=== PATIENT | female | born 1980 | race Caucasian/White ===

== ENCOUNTER 2018-08-21 16:53 | Emergency (ER) | payer MEDICAID, SELFPAY ==
[2018-08-21 16:56] VITALS: BP 151/92; PULSE 68; RESP 16; TEMP 36.7; O2SAT 100
--- NOTE | 2018-08-21 17:11 | W.ED.GENAD ---
Discharge Plan Disposition Patient Disposition: HOME Condition: Stable Discharge Details Chief Complaint: RespSymp Clinical Impression: Community acquired pneumonia Primary Care Provider: Gayle Andrade ED Provider: Mikal Quintero Home Meds and New Rx's Prescriptions: New doxycycline hyclate 100 mg tablet 100 mg PO BID Qty: 14 RF: 0 Discharge Instructions Instructions: Pneumonia (ED) Additional Instructions: if you are not feeling better in a week follow up with your primary care provider if you have worsening difficulty breathing or severe chest pain return to the emergency department Stand Alone Forms: Work Release Medical Decision Making 37 yo who denies chronic med problems, chronic smoker, who comes in with cough for 2 weeks. No fevers or recent travel, no chest pain or dyspnea. Has rhonchi at the base on the left lower otherwise appears well systemically and speaking in full sentences. Could be uri vs post nasal drip but will treat for possible cap with doxy and advised f/u with pcp and return precautions given Differential Diagnosis bronchitis, pna, copd, asthma, post nasal drip HPI General Mode of arrival: ambulatory. Date/Time Provider Initiated Documentation: 08/21/18 16:54. Limitations to Documentation: no limitations. Information obtained by: patient. History of Present Illness 37 year old F presents to the emergency department with the chief complaint of cough, described as moderate, Patient reports no radiation. Patient started experiencing this week(s) (2) and it has been constant. No relieving factors improve symptom(s), No exacerbating factors reported . Patient did receive the following treatments prior to arrival, none Related Data Home Medications Medication Instructions Recorded Confirmed doxycycline hyclate 100 mg PO BID #14 tab 08/21/18 Previous Rx's Medication Instructions Recorded doxycycline hyclate 100 mg PO BID #14 tab 08/21/18 Allergies Allergy/AdvReac Type Severity Reaction Status Date / Time Penicillins Allergy Mild Topical Unverified 08/21/18 17:03 Irritation General Stated Complaint: RespSymp MANA: 4 Review of Systems Review of Systems All systems reviewed & are unremarkable except as noted in HPI and below Constitutional Denies chills, Denies fever(s) and Denies weakness Eyes Denies loss of vision ENT Denies change in voice Cardiovascular Denies chest pain and Denies dyspnea Respiratory Denies dyspnea Gastrointestinal Denies abdominal pain, Denies nausea and Denies vomiting Genitourinary Denies dysuria Musculoskeletal Denies joint swelling Integumentary/Breasts Denies rash Neurologic Denies loss of vision and Denies weakness Psychiatric Denies depression Endocrine Denies cold intolerance and Denies heat intolerance Allergic/Immunologic Denies urticaria PFSH Social History Smoking/Tobacco Use Status: Current every day Exam Const General: no acute distress Orientation: alert HENMT Head: normal to inspection Ears: external ears normal General nose exam: external nose normal Mouth: moist mucous membranes Eyes General: appearance normal, both eyes and all related structures Neck Neck: normal visual inspection Resp Effort & Inspection: normal respiratory effort and able to speak in complete sentences Cardio Rate: regular rate Skin General skin exam: no rashes or lesions noted Neuro General: alert and oriented x3 Extrem General: normal to inspection Psych Mental Status: mental status grossly normal Course Vital Signs Temperature 36.7 C 08/21/18 16:56 Pulse 68 08/21/18 16:56 Respiratory Rate 16 08/21/18 16:56 Blood Pressure 151/92 H 08/21/18 16:56 Pulse Oximetry 100 08/21/18 16:56 Temperature 36.7 C 08/21/18 16:56 Temperature Source Skin 08/21/18 16:56 Pulse 68 08/21/18 16:56 Respiratory Rate 16 08/21/18 16:56 Respiratory Effort 08/21/18 17:06 Respiratory Depth Normal 08/21/18 17:06 Blood Pressure 151/92 H 08/21/18 16:56 Blood Pressure Position Sitting 08/21/18 16:56 Pulse Oximetry 100 08/21/18 16:56 Oxygen Delivery Method Room Air 08/21/18 16:56 Oxygen Flow Rate 0 08/21/18 16:56 Pain Level 5 08/21/18 16:56
--- NOTE | 2018-08-21 17:14 | ED.GENADUL_ITS ---
Discharge Plan Disposition Patient Disposition: HOME Condition: Stable Discharge Details Chief Complaint: RespSymp Clinical Impression: Community acquired pneumonia Primary Care Provider: Gayle Andrade ED Provider: Mikal Quintero Home Meds and New Rx's Prescriptions: New doxycycline hyclate 100 mg tablet 100 mg PO BID Qty: 14 RF: 0 Discharge Instructions Instructions: Pneumonia (ED) Additional Instructions: if you are not feeling better in a week follow up with your primary care provider if you have worsening difficulty breathing or severe chest pain return to the emergency department Stand Alone Forms: Work Release Medical Decision Making 37 yo who denies chronic med problems, chronic smoker, who comes in with cough for 2 weeks. No fevers or recent travel, no chest pain or dyspnea. Has rhonchi at the base on the left lower otherwise appears well systemically and speaking in full sentences. Could be uri vs post nasal drip but will treat for possible cap with doxy and advised f/u with pcp and return precautions given Differential Diagnosis bronchitis, pna, copd, asthma, post nasal drip HPI General Mode of arrival: ambulatory . Date/Time Provider Initiated Documentation: 08/21/18 16:54 . Limitations to Documentation: no limitations . Information obtained by: patient . History of Present Illness 37 year old F presents to the emergency department with the chief complaint of cough, described as moderate, Patient reports no radiation. Patient started experiencing this week(s) (2) and it has been constant. No relieving factors improve symptom(s), No exacerbating factors reported . Patient did receive the following treatments prior to arrival, none Related Data Home Medications Medication Instructions Recorded Confirmed doxycycline hyclate 100 mg PO BID #14 tab 08/21/18 Previous Rx's Medication Instructions Recorded doxycycline hyclate 100 mg PO BID #14 tab 08/21/18 Allergies Allergy/AdvReac Type Severity Reaction Status Date / Time Penicillins Allergy Mild Topical Unverified 08/21/18 17:03 Irritation General Stated Complaint: RespSymp MANA: 4 Review of Systems Review of Systems All systems reviewed & are unremarkable except as noted in HPI and below Constitutional Denies chills, Denies fever(s) and Denies weakness Eyes Denies loss of vision ENT Denies change in voice Cardiovascular Denies chest pain and Denies dyspnea Respiratory Denies dyspnea Gastrointestinal Denies abdominal pain, Denies nausea and Denies vomiting Genitourinary Denies dysuria Musculoskeletal Denies joint swelling Integumentary/Breasts Denies rash Neurologic Denies loss of vision and Denies weakness Psychiatric Denies depression Endocrine Denies cold intolerance and Denies heat intolerance Allergic/Immunologic Denies urticaria PFSH Social History Smoking/Tobacco Use Status: Current every day Exam Const General: no acute distress Orientation: alert HENMT Head: normal to inspection Ears: external ears normal General nose exam: external nose normal Mouth: moist mucous membranes Eyes General: appearance normal, both eyes and all related structures Neck Neck: normal visual inspection Resp Effort & Inspection: normal respiratory effort and able to speak in complete sentences Cardio Rate: regular rate Skin General skin exam: no rashes or lesions noted Neuro General: alert and oriented x3 Extrem General: normal to inspection Psych Mental Status: mental status grossly normal Course Vital Signs Temperature 36.7 C 08/21/18 16:56 Pulse 68 08/21/18 16:56 Respiratory Rate 16 08/21/18 16:56 Blood Pressure 151/92 H 08/21/18 16:56 Pulse Oximetry 100 08/21/18 16:56 Temperature 36.7 C 08/21/18 16:56 Temperature Source Skin 08/21/18 16:56 Pulse 68 08/21/18 16:56 Respiratory Rate 16 08/21/18 16:56 Respiratory Effort 08/21/18 17:06 Respiratory Depth Normal 08/21/18 17:06 Blood Pressure 151/92 H 08/21/18 16:56 Blood Pressure Position Sitting 08/21/18 16:56 Pulse Oximetry 100 08/21/18 16:56 Oxygen Delivery Method Room Air 08/21/18 16:56 Oxygen Flow Rate 0 08/21/18 16:56 Pain Level 5 08/21/18 16:56
[2018-08-21 17:17] VITALS: BP 151/92; PULSE 68; RESP 16; TEMP 36.7; O2SAT 100
== END 2018-08-21 17:20 | disposition home or self-care (01) ==
LOC: ER 17:23
PROVIDERS: Emergency Provider Emergency Medicine; PCP Nurse Practitioner Family
DX: J18.9 Pneumonia, unspecified organism (principal)
CPT/HCPCS: 99283

== ENCOUNTER 2019-03-22 19:46 | Emergency (ER) | payer MEDICAID, SELFPAY ==
[2019-03-22 19:51] VITALS: BP 114/83; PULSE 110; RESP 28; TEMP 37.3; O2SAT 96
--- NOTE | 2019-03-22 20:39 | W.ED.GENAD ---
Discharge Plan Disposition Patient Disposition: HOME Condition: Good Discharge Details Chief Complaint: RashLesion Clinical Impression: Abscess of gluteal cleft Primary Care Provider: Gayle Andrade ED Provider: Angus Dennison Home Meds and New Rx's Prescriptions: New clindamycin HCl 150 mg capsule 450 mg PO TID 7 Days Qty: 63 RF: 0 Discharge Instructions Instructions: Abscess (ED) Additional Instructions: You had an abscess that was drained. It has now been packed. Please take the antibiotic as directed. Please do not submerse your buttock and water at all until you are reassessed by a physician. Please eat yogurt with live cultures to prevent diarrhea. Please follow-up in the next 3 days for reassessment of your wound if you notice any worsening of your symptoms, or any new symptoms such as vomiting, diarrhea, fever, chills, shortness of breath, chest pain, numbness, weakness, or fainting , please return immediately to the emergency department for reevaluation. Please follow up with your primary care provider as soon as possible for reassessment and reevaluation. As always, it was a pleasure participating in your medical care today. Stand Alone Forms: Work Release Referrals: Gayle Andrade [Primary Care Provider] - Medical Decision Making This is a pleasant 38-year-old female with no significant past medical history who presents today for evaluation of sacral abscess. Symptoms have been present for the last 4 days and gradually been worsening. Exam demonstrates evidence of a mild small abscess at the gluteal cleft just to the right of midline. The area was anesthetized with 5 cc of lidocaine, and was I indeed successfully. Notable purulence was exuded. The area was then packed. Patient will be started on clindamycin for the associated mild cellulitis. Patient's pain is completely resolved after incision and drainage and she feels much better. Discussed the importance of close follow-up, wound care instructions, and importance of reevaluation for removal of the packing. I have extensively reviewed the treatment plan and discharge instructions with the patient. I have addressed all patient concerns at this time. The patient was made aware of what symptoms to monitor for that would warrant a return to the emergency department. Discussed the plan with the patient, they demonstrate verbal understanding and agreement with our assessment and plan at this time. Procedure note I&D abscess: Time out was taken to identify the correct patient, procedure, and site. Risks and benefits were discussed with the patient and consent was obtained. Ultrasound was used to locate the site of maximal fluid collection. The site was sterilized and draped in the typical fashion. Lidocaine 1% 5ml was instilled into the surrounding tissue. Appropriate analgesia was obtained. The abscess was incised with an 11 blade, and purulent material and blood were expressed. The wound was packed, cleaned, and dressed. Blood loss was minimal. The patient tolerated the procedure well. There were no complications HPI General Date/Time Provider Initiated Documentation: 03/22/19 19:58. HPI Narrative: This is a 38-year-old female with no significant past medical history who presents today for evaluation of an abscess on her buttock. She states that for the last 4 days it is been present, the swelling has been increasing. pain is fairly notable. Untouched by Tylenol or Motrin. She denies any fever or chills. She has no other complaints modifying factors. She denies a history of IV or illicit drug use or previous history of abscesses like this. No other complaints at this time. Related Data Home Medications Medication Instructions Recorded Confirmed clindamycin HCl 450 mg PO TID 7 Days #63 cap 03/22/19 Previous Rx's Medication Instructions Recorded clindamycin HCl 450 mg PO TID 7 Days #63 cap 03/22/19 Allergies Allergy/AdvReac Type Severity Reaction Status Date / Time Penicillins Allergy Mild Topical Unverified 08/21/18 17:03 Irritation General Stated Complaint: RashLesion MANA: 3 Review of Systems Review of Systems All systems reviewed & are unremarkable except as noted in HPI and below [facility] Social History Smoking/Tobacco Use Status: Current every day Drug use: Never Substance use type: does not use Do you feel safe at home: Yes Do you feel safe in your relationship?: Yes Exam Narrative Exam Narrative: 1.Const: Well-nourished, Well-developed, appearing stated age 2.Eyes: PERRL, no conjunctival injection, and symmetrical lids. 3.ENT: Atraumatic external nose and ears. Moist MM. Neck: Symmetric, trachea midline, No thyromegaly. 4.CVS: +S1/S2, No murmurs or gallops. Peripheral pulses 2+ and equal in all extremities. Brisk capillary refill in all extremities. 5.RESP: Unlabored respiratory effort. Clear to auscultation bilaterally. No wheezes rales or rhonchi 6.GI: Soft, Nontender/Nondistended, No hepatosplenomegaly. No guarding or rebound. 7.MSK: Normocephalic/Atraumatic, Extremities w/o deformity or ttp No cyanosis or clubbing, Normal movement of all extremities 8.Skin: Warm, Dry. Gluteal exam was performed with female nurse Ashlee at bedside. Exam at the superior gluteal cleft demonstrates evidence of a small abscess with notable fluctuance roughly 1.5 cm in diameter. It is slightly to the right of midline. Mild redness surrounding it extending roughly 1.5 to 2 cm from the central abscess. No other significant abnormalities. 9.Neuro: head of visual merchandising II-XII grossly intact. Sensation grossly intact, no focal neurologic deficits. 10.Psych: (AAO) x3. Appropriate mood and affect Course Vital Signs Temperature 37.3 C 03/22/19 19:51 Pulse 110 H 03/22/19 19:51 Respiratory Rate 28 H 03/22/19 19:51 Blood Pressure 114/83 03/22/19 19:51 Pulse Oximetry 96 03/22/19 19:51 Temperature 37.3 C 03/22/19 19:51 Temperature Source Tympanic 03/22/19 19:51 Pulse 110 H 03/22/19 19:51 Respiratory Rate 28 H 03/22/19 19:51 Respiratory Effort Non-Labored 03/22/19 19:59 Blood Pressure 114/83 03/22/19 19:51 Blood Pressure Position Left Lateral 03/22/19 19:51 Pulse Oximetry 96 03/22/19 19:51 Oxygen Delivery Method Room Air 03/22/19 19:51 Oxygen Flow Rate 0 03/22/19 19:51 Lab/Test Results Lab/Test Results: 03/22/19 20:20 Sacrum Wound Culture - Pending 03/22/19 20:20 Sacrum Gram Stain - Pending 03/22/19 20:36 Sacrum Wound Culture - Pending 03/22/19 20:36 Sacrum Gram Stain - Pending
[2019-03-22] MEDS: Clindamycin 150 MG CAP 450 MG PO (20:49)
== END 2019-03-22 20:50 | disposition home or self-care (01) ==
PROVIDERS: Emergency Provider Student in an Organized Health Care Education/Training Program; PCP Nurse Practitioner Family
DX: L02.31 Cutaneous abscess of buttock (principal)
CPT/HCPCS: 10061; 87077; 87070; 87205

== ENCOUNTER 2019-03-25 17:35 | Emergency (ER) | payer MEDICAID, SELFPAY ==
[2019-03-25 17:43] VITALS: BP 152/95; PULSE 88; RESP 12; TEMP 37.1; O2SAT 99
--- NOTE | 2019-03-25 19:07 | W.ED.GENAD ---
Discharge Plan Disposition Patient Disposition: HOME Condition: Improving Discharge Details Chief Complaint: Recheck Clinical Impression: Encounter for recheck of abscess following incision and drainage Primary Care Provider: Gayle Andrade ED Provider: Meng Medina Home Meds and New Rx's Prescriptions: Continued clindamycin HCl 150 mg capsule 450 mg PO TID 7 Days Qty: 63 RF: 0 Discharge Instructions Instructions: Abscess (ED), Sitz Bath (GEN) Additional Instructions: Continue to watch for any worsening signs or symptoms, fever chills, or change in drainage or pain. If these occur feel free to return to the emergency department for reassessment otherwise follow-up with your primary care provider as arranged. Continue to take your antibiotics Referrals: Armaan Morfin NP [NURSE PRACTITIONER] - 03/27/19 (Keep your appointment as scheduled for recheck on Saturday) Discharge Data Discharge Date/Time-TO BE ENTERED AT DEPARTURE: 03/25/19 19:17 Medical Decision Making Gluteal abscess recheck. Patient does that she went to her primary care provider to have wound rechecked and packing removed but thought it was states it was due for Pap smear monitor for Pap smear. Patient reported that she was not there for PAP smear. Patient was informed that she seen by provider in 2 days and that the wound recheck. Due to her frustration she presented to the emergency department for wound recheck and packing removal. wound appears to be healing well, serosanguineous drainage with no purulence or significant odor. Discussed risk versus benefit of packing removal which she was in agreement to have packing removed. Packing was removed without incident and continued to show no purulent drainage. Patient was encouraged to have sitz bath and to keep follow-up appoint with primary care in 2 days for reassessment. Patient to continue antibiotic prescribed. Return precautions discussed. After discussion of diagnosis and plan of care patient has no further needs, questions, or concerns and states clear understanding to return to the emergency department for any worsening symptoms. HPI General Mode of arrival: ambulatory. Date/Time Provider Initiated Documentation: 03/25/19 17:45. Limitations to Documentation: no limitations. Information obtained by: patient, RN notes reviewed and old records reviewed. History of Present Illness 38 year old F presents to the emergency department with the chief complaint of Abscess recheck, described as moderate, with intensity rated at 5. Quality is described as aching, and is localized to the buttocks. Patient started experiencing this day(s) (3) Patient notes no other symptoms.. Related Data Home Medications Medication Instructions Recorded Confirmed clindamycin HCl 450 mg PO TID 7 Days #63 cap 03/22/19 03/25/19 Previous Rx's Medication Instructions Recorded clindamycin HCl 450 mg PO TID 7 Days #63 cap 03/22/19 Allergies Allergy/AdvReac Type Severity Reaction Status Date / Time Penicillins Allergy Mild Topical Unverified 03/25/19 17:47 Irritation General Stated Complaint: Recheck MANA: 4 Review of Systems Constitutional Denies chills and Denies fever(s) Gastrointestinal Denies change in bowel habits, Denies change in stool character, Denies diarrhea, Denies nausea and Denies vomiting Integumentary/Breasts Reports as per HPI and Denies rash PFSH Social History Smoking/Tobacco Use Status: Current every day Drug use: Never Substance use type: does not use Do you feel safe at home: Yes Do you feel safe in your relationship?: Yes Exam Const General: cooperative, no acute distress and not ill appearing Orientation: alert, awake and oriented x3 Resp Effort & Inspection: normal respiratory effort, able to speak in complete sentences and no respiratory distress Skin General skin exam: erythema (With gluteal fold and packing in place.) Wounds: wounds noted Course Vital Signs Temperature 37.1 C 03/25/19 17:43 Pulse 88 03/25/19 17:43 Respiratory Rate 12 03/25/19 17:43 Blood Pressure 152/95 H 03/25/19 17:43 Pulse Oximetry 99 03/25/19 17:43 Temperature 37.1 C 03/25/19 17:43 Temperature Source Temporal Artery Scan 03/25/19 17:43 Pulse 88 03/25/19 17:43 Respiratory Rate 12 03/25/19 17:43 Respiratory Effort Non-Labored 03/25/19 17:46 Blood Pressure 152/95 H 03/25/19 17:43 Blood Pressure Position Sitting 03/25/19 17:43 Pulse Oximetry 99 03/25/19 17:43 Oxygen Delivery Method Room Air 03/25/19 17:43 Oxygen Flow Rate 0 03/25/19 17:43 Pain Level 5 03/25/19 17:43
--- NOTE | 2019-03-25 19:10 | ED.GENADUL_ITS ---
Discharge Plan Disposition Patient Disposition: HOME Condition: Improving Discharge Details Chief Complaint: Recheck Clinical Impression: Encounter for recheck of abscess following incision and drainage Primary Care Provider: Gayle Andrade ED Provider: Meng Medina Home Meds and New Rx's Prescriptions: Continued clindamycin HCl 150 mg capsule 450 mg PO TID 7 Days Qty: 63 RF: 0 Discharge Instructions Instructions: Abscess (ED), Sitz Bath (GEN) Additional Instructions: Continue to watch for any worsening signs or symptoms, fever chills, or change in drainage or pain. If these occur feel free to return to the emergency department for reassessment otherwise follow-up with your primary care provider as arranged. Continue to take your antibiotics Referrals: Armaan Morfin NP [NURSE PRACTITIONER] - 03/27/19 (Keep your appointment as scheduled for recheck on Saturday) Discharge Data Discharge Date/Time-TO BE ENTERED AT DEPARTURE: 03/25/19 19:17 Medical Decision Making Gluteal abscess recheck. Patient does that she went to her primary care provider to have wound rechecked and packing removed but thought it was states it was due for Pap smear monitor for Pap smear. Patient reported that she was not there for PAP smear. Patient was informed that she seen by provider in 2 days and that the wound recheck. Due to her frustration she presented to the emergency department for wound recheck and packing removal. wound appears to be healing well, serosanguineous drainage with no purulence or significant odor. Discussed risk versus benefit of packing removal which she was in agreement to have packing removed. Packing was removed without incident and continued to show no purulent drainage. Patient was encouraged to have sitz bath and to keep follow-up appoint with primary care in 2 days for reassessment. Patient to continue antibiotic prescribed. Return precautions discussed. After discussion of diagnosis and plan of care patient has no further needs, questions, or concerns and states clear understanding to return to the emergency department for any worsening symptoms. HPI General Mode of arrival: ambulatory . Date/Time Provider Initiated Documentation: 03/25/19 17:45 . Limitations to Documentation: no limitations . Information obtained by: patient, RN notes reviewed and old records reviewed . History of Present Illness 38 year old F presents to the emergency department with the chief complaint of Abscess recheck, described as moderate, with int ensity rated at 5. Quality is described as aching, and is localized to the buttocks. Patient started experiencing this day(s) (3) Patient notes no other symptoms.. Related Data Home Medications Medication Instructions Recorded Confirmed clindamycin HCl 450 mg PO TID 7 Days #63 cap 03/22/19 03/25/19 Previous Rx's Medication Instructions Recorded clindamycin HCl 450 mg PO TID 7 Days #63 cap 03/22/19 Allergies Allergy/AdvReac Type Severity Reaction Status Date / Time Penicillins Allergy Mild Topical Unverified 03/25/19 17:47 Irritation General Stated Complaint: Recheck MANA: 4 Review of Systems Constitutional Denies chills and Denies fever(s) Gastrointestinal Denies change in bowel habits, Denies change in stool character, Denies diarrhea, Denies nausea and Denies vomiting Integumentary/Breasts Reports as per HPI and Denies rash PFSH Social History Smoking/Tobacco Use Status: Current every day Drug use: Never Substance use type: does not use Do you feel safe at home: Yes Do you feel safe in your relationship?: Yes Exam Const General: cooperative, no acute distress and not ill appearing Orientation: alert, awake and oriented x3 Resp Effort & Inspection: normal respiratory effort, able to speak in complete sentences and no respiratory distress Skin General skin exam: erythema (With gluteal fold and packing in place.) Wounds: wounds noted Course Vital Signs Temperature 37.1 C 03/25/19 17:43 Pulse 88 03/25/19 17:43 Respiratory Rate 12 03/25/19 17:43 Blood Pressure 152/95 H 03/25/19 17:43 Pulse Oximetry 99 03/25/19 17:43 Temperature 37.1 C 03/25/19 17:43 Temperature Source Temporal Artery Scan 03/25/19 17:43 Pulse 88 03/25/19 17:43 Respiratory Rate 12 03/25/19 17:43 Respiratory Effort Non-Labored 03/25/19 17:46 Blood Pressure 152/95 H 03/25/19 17:43 Blood Pressure Position Sitting 03/25/19 17:43 Pulse Oximetry 99 03/25/19 17:43 Oxygen Delivery Method Room Air 03/25/19 17:43 Oxygen Flow Rate 0 03/25/19 17:43 Pain Level 5 03/25/19 17:43
== END 2019-03-25 19:17 | disposition home or self-care (01) ==
PROVIDERS: Emergency Provider Nurse Practitioner Family; PCP Nurse Practitioner Family
DX: L02.31 Cutaneous abscess of buttock (principal)

== ENCOUNTER 2019-07-30 15:49 | Outpatient (REF) | payer MEDICAID, SELFPAY ==
--- NOTE | 2019-07-30 15:30 | PAPFT_PTH ---
PATIENT: AIYANA SOLORZANO LOC: [facility] U#:[id number] AGE/SX: 38/F ROOM: RE07/30/[address]: Armaan Morfin : 1980 BED: DIS: 07/30/2019 SPEC #: [id number] RECD: 07/30/19 18:16 STATUS: NIKKIE REQ #: [id number] HUMBLE: 07/30/19 15:[address]: Armaan Morfin DEPT: [facility] Cytology RECD BY: Bridgette Villalobos ENTERED: 07/30/19 18:16 SP TYPE: PAPFT OTHR DR: Gayle Andrade Tissues: 1 - CX/ENDOCX FOR PAP SMEARS Procedures: PAP THIN PREP/[facility] Screening HPV DNA PROBE Comments: [id number]
== END 2019-07-30 16:09 ==
LOC: NCHCN 15:49
PROVIDERS: PCP Nurse Practitioner Family; Visit Provider Nurse Practitioner Family
DX: Z12.4 Encounter for screening for malignant neoplasm of cervix (principal); Z11.51 Encounter for screening for human papillomavirus (HPV)
CPT/HCPCS: 88142; 87624

== ENCOUNTER 2021-01-11 09:38 | Outpatient (REF) | payer MEDICAID, SELFPAY ==
[2021-01-12 13:18] LABS: COVID-19 RT-PCR UVMMC Result Negative (Negative)
== END 2021-01-11 09:39 | disposition home or self-care (01) ==
LOC: NCHCN 09:38
PROVIDERS: PCP Student in an Organized Health Care Education/Training Program; Visit Provider Internal Medicine
DX: Z20.822 Contact with and (suspected) exposure to COVID-19 (principal)
CPT/HCPCS: U0003